=== PATIENT | male | born 1965 | race Caucasian/White ===

== ENCOUNTER 2017-01-15 21:50 | Emergency (ER) | payer OTHER | END 2017-01-15 23:30 | disposition home or self-care (01) | LOC: FER 21:50 | DX: T16.2XXA Foreign body in left ear, initial encounter (principal); I10 Essential (primary) hypertension; Z79.899 Other long term (current) drug therapy ==

== ENCOUNTER 2022-02-17 17:38 | Emergency (ER) | payer OTHER ==
[2022-02-17 19:13] LABS: BASOPHIL 0.7 % (0-2); EOSINOPHIL 1.5 % (0-5); HCT 43.1 % (42.0-52.0); HGB 15.4 g/dl (13.2-18.0); LYMPHOCYTE 26.9 % (15-48); MCH 34.5 pg (25.0-31.0); MCHC 35.7 g/dL (32.0-36.0); MCV 96.6 fL (78.0-100.0); MPV 9.4 fL (6.0-9.5); NEUTROPHIL 55.7 % (41-80); NRBC 0; PLT 177 K/uL (150-400); RBC 4.46 M/uL (4.70-6.00); RDW 13.3 % (11.5-14.0); WBC 5.4 K/uL (4.0-10.5)
[2022-02-17 19:41] LABS: ALBUMIN 3.6 g/dL (3.4-5.0); BILIRUBIN - TOTAL 0.6 mg/dL (0.2-1.0); BUN/CREAT RATIO (CALC) 19.2 RATIO; CREATININE 0.78 mg/dL (0.67-1.17); GLOBULIN (CALCULATION) 3.7 g/dL; POTASSIUM 3.9 mmol/L (3.5-5.1); TOTAL PROTEIN 7.3 g/dL (6.4-8.2)
== END 2022-02-17 20:20 | disposition home or self-care (01) ==
LOC: FER 17:38
PROVIDERS: Physician Assistant
DX: M25.511 Pain in right shoulder (principal); M54.2 Cervicalgia
CPT/HCPCS: 36415; 71045; 80053; 84484; 85025; 93005